=== PATIENT | female | born 1990 | race Caucasian/White ===

== ENCOUNTER 2016-12-09 21:15 | Emergency (ER) | payer OTHER ==
[2016-12-09 21:25] VITALS: BP 127/83
[2016-12-09] MEDS ORDERED: Amoxicillin/Clavulanate TAB* 875 MG PO ONE ×2 (21:59→22:12)
--- NOTE | 2016-12-09 22:27 | ED ---
Kinga Manuel Janilya, scribed for Rachelle Rivera MD on 12/09/16 at 2204 . HPI Febrile Illness - HPI Summary HPI Summary: A 26 y/o female came in to [facility] presenting w/ a gradual onset of constant sinusitis Sx. 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 Before she traveled to the [facility], pt had cold-like Sx. Her doctor in [place] diagnosed her w/ sinusitis and prescribed Cipro. She was told to take it for 7 days, and after, take it as needed. She finished the course, and 2 weeks ago, pt started having the same Sx. On , December 07, 2016, she started taking Cipro. However, she ran out of the medication that was previously prescribed to her. Her Sx include coughing, FENG, fever, nasal discharge. - History of Current Complaint Chief Complaint: EDGeneral Time Seen by Provider: 12/09/16 21:36 Hx Obtained From: Patient Onset/Duration: Started Days Ago, Atraumatic, Still Present Timing: Constant Initial Severity: Moderate Current Severity: Moderate Pain Intensity: 2 Pain Scale Used: 0-10 Numeric Aggravating Factors: Nothing Alleviating Factors: Nothing - Allergy/Home Medications Allergies/Adverse Reactions: Allergies Allergy/AdvReac Type Severity Reaction Status Date / Time No Known Allergies Allergy Verified 12/09/16 21:26 PMH/Surg Hx/FS Hx/Imm Hx Previously Healthy: Yes Cardiovascular History: Denies: Hx Pacemaker/ICD Infectious Disease History: No Infectious Disease History: Reports: Traveled Outside the in Last [place] Days - [place] - Family History Known Family History: Negative: Hypertension - Social History Occupation: Student Alcohol Use: None Hx Substance Use: No Hx Tobacco Use: No Review of Systems Positive: Fever Positive: Nasal Discharge Positive: Cough Positive: Headache All Other Systems Reviewed And Are Negative: Yes Physical Exam Triage Information Reviewed: Yes Vital Signs On Initial Exam: Initial Vitals Temp Pulse Resp BP Pulse Ox 98.2 F 81 14 127/83 100 12/09/16 21:23 12/09/16 21:23 12/09/16 21:23 12/09/16 21:23 12/09/16 21:23 Vital Signs Reviewed: Yes Appearance: Positive: Well-Appearing, No Pain Distress Skin: Positive: Warm, Skin Color Reflects Adequate Perfusion Head/Face: Positive: Other - Frontal lobe tenderness Eyes: Positive: EOMI, FIDE ENT: Positive: Pharynx normal, TMs normal Neck: Positive: Supple, Nontender Respiratory/Lung Sounds: Positive: Clear to Auscultation, Breath Sounds Present. Negative: Rales, Rhonchi, Wheezes Cardiovascular: Positive: RRR. Negative: Murmur, Rub, Other - no gallops Abdomen Description: Positive: Nontender, Soft. Negative: Distended, Guarding, Other: - no rebound Bowel Sounds: Positive: Present Musculoskeletal: Positive: Strength/ROM Intact. Negative: Edema Left, Edema Right Neurological: Positive: Sensory/Motor Intact, Alert, Oriented to Person Place, Time, CN Intact II-III Psychiatric: Positive: Affect/Mood Appropriate Diagnostics - Vital Signs Vital Signs Temp Pulse Resp BP Pulse Ox 12/09/16 21:23 98.2 F 81 14 127/83 100 - Laboratory Lab Statement: Any lab studies that have been ordered have been reviewed, and results considered in the medical decision making process. Course/Dx - Course Course Of Treatment: A 26 y/o female came in to [facility] presenting w/ a gradual onset of constant sinusitis Sx. 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 Before she traveled to the [facility], pt had cold-like Sx. Her doctor in [place] diagnosed her w/ sinusitis and prescribed Cipro. She was told to take it for 7 days, and after , take it as needed. She finished the course, and 2 weeks ago, pt started having the same Sx. On , December 07, 2016, she started taking Cipro. However, she ran out of the medication that was previously prescribed to her. Her Sx include coughing, FENG, fever, nasal discharge. decided to change pt to augmentin which is the recommended drug for sinusitis and is cheaper given that her insurance from [place] may not cover her. also giving her urgent rx, pt is very well appearing - Diagnoses Provider Diagnoses: Sinusitis Discharge - Discharge Plan Condition: Stable Disposition: HOME Prescriptions: Amoxicillin/Clavulanate TAB* [Augmentin TAB 875*] 875 mg PO BID #18 tab Patient Education Materials: Sinusitis (ED) Referrals: Non Staff,Doctor [Primary Care Provider] - [facility] [Outside] - 2 Days The documentation as recorded by the Kinga flores Janilya accurately reflects the service I personally performed and the decisions made by me, Rachelle Rivera MD.
== END 2016-12-09 22:57 | disposition home or self-care (01) ==
LOC: EDBD → ED 21:15
DX: J32.9 Chronic sinusitis, unspecified (principal); R50.9 Fever, unspecified; R05 Cough; R51 Headache
CPT/HCPCS: 99282; A9270-GY